=== PATIENT | male | born 1960 | race Caucasian/White ===

== ENCOUNTER → 2022-05-18 | Outpatient (CLI) | payer MEDICARE, OTHER ==
[~2022-05-18] MED LIST: VICODIN 500 MG-1 TAB PO; VICODIN ES 7501 TAB PO
[2022-05-18 17:12] LABS: BASO # 0.1 10*3/uL (0.0-0.1); BASO % 0.5 % (0.0-1.0); EOS # 0.1 10*3/uL (0.0-0.4); EOS % 0.8 % (1.0-4.0); HEMATOCRIT 34.4 % (42.0-52.0); LYMPH # 0.5 10*3/uL (1.3-4.4); LYMPH % 5.5 % (27.0-41.0); MEAN CELL VOLUME 99.7 fl (80.0-94.0); MEAN CORPUSCULAR HGB CONC 31.1 g/dl (33.0-37.0); MONO # 0.6 10*3/uL (0.1-1.0); MONO % 6.5 % (3.0-9.0); NEUT # 8.2 10*3/uL (2.3-7.9); NEUT % 85.6 % (47.0-73.0); PLATELET COUNT AUTOMATED 280 10*3/uL (130-400); RED BLOOD COUNT 3.45 10*6/uL (4.50-5.90); RED CELL DISTRI WIDTH 17.6 % (0-14.5); WHITE BLOOD COUNT 9.6 10*3/uL (4.8-10.8)
[2022-05-18 17:36] LABS: ALKALINE PHOSPHATASE 78 U/L (46-116); BUN 31 mg/dl (9-23); CHLORIDE 104 mmol/L (98-107); CHOLESTEROL 177 mg/dL (<200); CREATININE 0.79 mg/dL (0.70-1.30); FREE T4 1.26 ng/dl (0.89-1.76); LDL CHOLESTEROL 78 mg/dL (9-159); POTASSIUM 4.5 mmol/L (3.4-5.1); SGPT/ALT 49 U/L (10-49); SODIUM 138 mmol/L (136-145); THYROID STIM HORMONE (HS) 9.072 uIU/ml (0.550-4.780); TOTAL PROTEIN 6.8 gm/dL (6.0-8.0); TRIGLYCERIDES 169 mg/dl (<150)
[2022-05-18 17:48] LABS: VITAMIN D, 25-HYDROXY 48.1 ng/mL (30-100)
== END | disposition home or self-care (01) ==
LOC: LAB 16:52
PROVIDERS: ATTEND Internal Medicine
DX: E55.9 Vitamin D deficiency, unspecified (principal); Z12.5 Encounter for screening for malignant neoplasm of prostate; Z13.89 Encounter for screening for other disorder; Z13.820 Encounter for screening for osteoporosis; Z13.0 Encounter for screening for diseases of the blood and blood-forming organs and certain disorders involving the immune mechanism; Z13.1 Encounter for screening for diabetes mellitus; Z13.21 Encounter for screening for nutritional disorder; Z13.220 Encounter for screening for lipoid disorders; Z13.228 Encounter for screening for other metabolic disorders; Z13.29 Encounter for screening for other suspected endocrine disorder; Z13.6 Encounter for screening for cardiovascular disorders; Z13.9 Encounter for screening, unspecified; Z79.899 Other long term (current) drug therapy

== ENCOUNTER 2022-05-22 15:32 | Emergency (ER) | payer MEDICARE, OTHER | END 2022-05-22 16:35 | disposition left against medical advice (07) | LOC: ED 15:32 | DX: Z53.21 Procedure and treatment not carried out due to patient leaving prior to being seen by health care provider (principal) ==

== ENCOUNTER 2022-05-23 07:58 | Emergency (ER) | payer MEDICARE, OTHER ==
[~2022-05-23] VITALS: Ht 175.2 cm; Wt 42.6 kg
[2022-05-23 08:23] VITALS: BP 99/54
== END 2022-05-23 09:07 | disposition home or self-care (01) ==
LOC: ED 07:58
DX: J95.03 Malfunction of tracheostomy stoma (principal)

== ENCOUNTER 2022-11-28 09:12 | Emergency (ER) | payer MEDICARE, MEDICAID ==
[~2022-11-28] VITALS: Wt 46.3 kg
[2022-11-28 09:27] VITALS: BP 100/62
== END 2022-11-28 09:42 | disposition home or self-care (01) ==
LOC: ED 09:12
DX: K94.23 Gastrostomy malfunction (principal); F32.A Depression, unspecified; Z98.890 Other specified postprocedural states

== ENCOUNTER 2023-04-28 15:30 | Emergency (ER) | payer MEDICARE, MEDICAID ==
[~2023-04-28] VITALS: Ht 175.2 cm; Wt 35.4 kg
[~2023-04-28 15:30] MED LIST changes: +CIPRO500 MG PO; +LEVOTHYROXINE100 MC1 PO; +ONDANSETRON HYDR8 MG PO; +SODIUM CHLORI1000 M5 MC; +TYLENOL325 M1 PO
[2023-04-28 15:44] VITALS: BP 164/89
[2023-04-28 16:05] LABS: HEMATOCRIT 33.3 % (42.0-52.0); MEAN CELL VOLUME 88.6 fl (80.0-94.0); MEAN CORPUSCULAR HGB 27.4 pg (27.0-31.0); MEAN CORPUSCULAR HGB CONC 30.9 g/dl (33.0-37.0); MEAN PLATELET VOLUME 9.9 fl (9.6-12.3); PLATELET COUNT AUTOMATED 598 10*3/uL (130-400); RED BLOOD COUNT 3.76 10*6/uL (4.50-5.90); RED CELL DISTRI WIDTH 19.7 % (0-14.5); WHITE BLOOD COUNT 25.6 10*3/uL (4.8-10.8)
[2023-04-28 16:07] LABS: MANUAL DIFF REFLEX YES
[2023-04-28 16:26] LABS: ALKALINE PHOSPHATASE 165 U/L (46-116); BUN 46 mg/dl (9-23); CHLORIDE 109 mmol/L (98-107); POTASSIUM 4.1 mmol/L (3.4-5.1); SGPT/ALT 8 U/L (5-49); TOTAL PROTEIN 7.4 gm/dL (6.0-8.0)
[2023-04-28 16:29] LABS: BASOPHILS 2 % (0-1); ROULEAUX SLIGHT; TOTAL CELLS COUNTED 100 #CELLS
[2023-04-28 16:30] LABS: PLATELET SUFFICIENCY HIGH (NORMAL)
[2023-04-28 16:31] LABS: MICROCYTOSIS SLIGHT
[2023-04-28] MEDS ORDERED: DOXYCYCLIN25 MG/5 ML PO (17:40)
== END 2023-04-28 18:00 | disposition home or self-care (01) ==
LOC: ED 15:30
PROVIDERS: Emergency Medicine
DX: A41.9 Sepsis, unspecified organism (principal); J18.9 Pneumonia, unspecified organism; R79.89 Other specified abnormal findings of blood chemistry; R00.0 Tachycardia, unspecified; I10 Essential (primary) hypertension; E78.5 Hyperlipidemia, unspecified; Z79.2 Long term (current) use of antibiotics; Z79.899 Other long term (current) drug therapy; Z87.891 Personal history of nicotine dependence; Z93.0 Tracheostomy status